=== PATIENT | male | born 1955 | race Caucasian/White ===

== ENCOUNTER → 2018-03-25 | Outpatient (REF) | payer OTHER | LOC: M LAB REF 16:14 | PROVIDERS: ATTEND Physician Assistant | DX: R30.0 Dysuria (principal) ==

== ENCOUNTER → 2018-04-17 | Outpatient (REF) | payer OTHER | LOC: M LAB REF 12:10 | PROVIDERS: ATTEND Physician Assistant | DX: N39.0 Urinary tract infection, site not specified (principal) ==

== ENCOUNTER 2018-04-24 14:53 | Emergency (ER) | payer OTHER ==
[~2018-04-24] VITALS: Ht 182.9 cm; Wt 100.9 kg
[2018-04-24] MEDS ORDERED: ZYLO300T6 PO (15:03)
[2018-04-24] MEDS ORDERED: BACT800T5 PO (15:03)
[2018-04-24] MEDS ORDERED: COLC1TAB13 PO (15:03)
[2018-04-24] MEDS ORDERED: CLON-412 PO (15:03)
[2018-04-24] MEDS ORDERED: ACETAMINOPHEN TAB 650MG DOSE (2X325MG) PO ONE (15:45)
[2018-04-24] MEDS ORDERED: cefTRIAXone SOD 1 GM in D5W MINI-BAG PLUS 50 ML IV ONE (15:45)
[2018-04-24] MEDS ORDERED: NS 1,000 ML IV ONE ×2 (15:45)
[2018-04-24 16:07] LABS: BASO % 0.2 % (0.0-1.0); EOS # 0.1 10^3/uL (0.0-0.50); EOS % 1.2 % (0.0-3.0); HEMATOCRIT 43.8 % (42.0-52.0); LYMPH # 0.4 10^3/uL (1.5-4.5); LYMPH % 7.5 % (24.0-44.0); MEAN CORPUSCULAR HEMOGLOBIN 32.6 pg (27.0-33.0); MEAN CORPUSCULAR HGB CONC 34.2 g/dl (32.0-36.5); MEAN CORPUSCULAR VOLUME 95.2 fl (80.0-96.0); MONO # 0.7 10^3/uL (0.0-0.8); MONO % 14.3 % (0.0-5.0); NEUTROPHILS # 3.8 10^3/uL (1.8-7.7); NEUTROPHILS % 75.8 % (36.0-66.0); PLATELET COUNT, AUTOMATED 180 10^3/uL (150-450); WHITE BLOOD COUNT 5.1 10^3/uL (4.0-10.0)
[2018-04-24 16:41] LABS: ALBUMIN 3.7 GM/DL (3.2-5.2); ALT/SGPT 60 U/L (12-78); BILIRUBIN,DIRECT < 0.1 MG/DL (0.0-0.2); BILIRUBIN,TOTAL 0.9 MG/DL (0.2-1.0); BLOOD UREA NITROGEN 13 MG/DL (7-18); CALCIUM LEVEL 8.7 MG/DL (8.8-10.2); CARBON DIOXIDE LEVEL 23 MEQ/L (21-32); CHLORIDE LEVEL 99 MEQ/L (98-107); CREATININE FOR GFR 1.38 MG/DL (0.70-1.30); GLUCOSE, FASTING 85 MG/DL (70-100); POTASSIUM SERUM 4.9 MEQ/L (3.5-5.1); SODIUM LEVEL 134 MEQ/L (136-145); TOTAL PROTEIN 7.4 GM/DL (6.4-8.2)
[2018-04-24] MEDS ORDERED: ISOVUE-370 76% 100ML VIAL (Q9967) As Ordered ONE (16:42)
--- NOTE | 2018-04-24 17:19 | REP ---
Clinical: Dysuria and systemic inflammatory response syndrome. Technique: Axial contrast enhanced images from the lung bases to the pubic symphysis using 100 ml Isovue 370 intravenous contrast material with coronal and sagittal re-formations. Findings: Lung bases demonstrate 3 mm noncalcified nodule along the periphery of the left lower lobe (image 23) likely incidental. Diffuse fatty infiltration to the liver noted without focal hepatic lesion identified. Spleen, pancreas, gallbladder, bilateral adrenal glands and kidneys are normal. The enteric system is without obstruction or acute inflammatory process. Colonic and sigmoid diverticula noted without acute diverticulitis. Evaluation of the pelvis demonstrates heterogeneous moderately enlarged prostate gland measuring 5 cm maximal transverse diameter. The bladder is incompletely distended but bladder wall thickening cannot be excluded and may warrant correlation with urinalysis. Small fat containing left inguinal hernia noted. No ascites. No free air. No significant adenopathy. Abdominal aorta demonstrates atherosclerotic changes without aneurysm or dissection. Surrounding musculoskeletal structures demonstrate age-related changes without focal osseous abnormality. Impression: 1. Hepatosteatosis. 2. Diverticulosis without acute diverticulitis. 3. Bladder wall thickening cannot be excluded and should be correlated with urinalysis. 4. Moderately enlarged prostate gland. Electronically Signed by Ye Pitts MD 04/24/2018 05:11 P
[2018-04-24 18:31] LABS: C REACTIVE PROTEIN QUANTITATIV 6.74 MG/DL (0.00-0.30)
[2018-04-24] MEDS ORDERED: FLOM0.4C39 PO (18:38)
[2018-04-24] MEDS ORDERED: CIPR-249 PO (18:38)
[2018-04-24 18:44] VITALS: BP 150/77
[2018-04-24 18:48] LABS: ERYTHROCYTE SEDIMENTATION RATE 37 mm/hr (0-20)
[2018-04-24 19:09] LABS: APPEARANCE, URINE CLEAR (CLEAR); BACTERIA, URINE AUTO NEGATIVE (NEGATIVE); BILIRUBIN, URINE AUTO NEGATIVE (NEGATIVE); BLOOD, URINE BLOOD NEGATIVE (NEGATIVE); COLOR, URINE YELLOW (YELLOW); GLUCOSE, URINE (UA) AUTO NEGATIVE (NEGATIVE); KETONE, URINE AUTO 1+ mg/dL (NEGATIVE); LEUKOCYTE ESTERASE, URINE AUTO NEGATIVE (NEGATIVE); NITRITE, URINE AUTO NEGATIVE (NEGATIVE); PROTEIN, URINE AUTO NEGATIVE (NEGATIVE); RBC, URINE AUTO 2 /HPF (0-3); SQUAMOUS EPITHELIAL CELL UR AU 0 /HPF (0-6); UROBILINOGEN, URINE AUTO 0.2 mg/dL (0.0-2.0); WBC, URINE AUTO 1 /HPF (0-3)
[2018-04-24 19:13] LABS: SPECIFIC GRAVITY URINE AUTO >1.060 (1.002-1.035)
== END 2018-04-24 18:55 | disposition home or self-care (01) ==
LOC: M ED 14:53
DX: N30.00 Acute cystitis without hematuria (principal); N40.0 Benign prostatic hyperplasia without lower urinary tract symptoms; R50.9 Fever, unspecified; K76.0 Fatty (change of) liver, not elsewhere classified; R00.0 Tachycardia, unspecified; I10 Essential (primary) hypertension; M10.9 Gout, unspecified; Z79.899 Other long term (current) drug therapy; Z79.2 Long term (current) use of antibiotics
CPT/HCPCS: 74177; 80048; 80076; 81001; 83605; 85025; 85652; 86140; 87040; 87086; 96365; 96366; 99284; G0103; J0696; Q9967

== ENCOUNTER 2018-04-26 10:13 | Inpatient (IN) | payer OTHER ==
[~2018-04-26] VITALS: Ht 182.9 cm; Wt 103.5 kg
[~2018-04-26 10:13] MED LIST: BACT800T5 PO; CIPR-249 PO; CLON-412 PO; COLC1TAB13 PO; FLOM0.4C39 PO; ZYLO300T6 PO
[2018-04-26] MEDS ORDERED: FAMOTIDINE INJ 20MG/2ML VIAL (S0028) IVP ONE (10:30)
[2018-04-26] MEDS ORDERED: methylPREDNISolone INJ 125 MG/2 ML VIAL (J2930) IV ONE (10:30)
[2018-04-26] MEDS ORDERED: NS 1,000 ML IV ONE ×2 (10:30)
[2018-04-26] MEDS ORDERED: diphenhydrAMINE INJ 50MG/ML VIAL (J1200) IV ONE (10:30)
[2018-04-26] MEDS ORDERED: FAMOTIDINE IV BAG 20 MG in APPROPRIATE DILUENT 1 EA IV ONE (10:45)
--- NOTE | 2018-04-26 11:06 | REP ---
Clinical: Chest and abdominal pain . Comparison: None . Technique: PA and lateral. Findings: The mediastinum and cardiac silhouette are normal. The lung man are clear and without acute consolidation, effusion, or pneumothorax. The skeletal structures are intact and normal. Impression: 1. No acute cardiopulmonary process. Electronically Signed by Ye Pitts MD 04/26/2018 10:58 A
[2018-04-26] MEDS ORDERED: XANA0.25 PO (11:20)
[2018-04-26 11:36] LABS: BASO % 0.2 % (0.0-1.0); EOS # 0.4 10^3/uL (0.0-0.50); HEMATOCRIT 45.2 % (42.0-52.0); HEMOGLOBIN 15.2 g/dl (13.5-17.5); LYMPH # 0.7 10^3/uL (1.5-4.5); LYMPH % 16.1 % (24.0-44.0); MEAN CORPUSCULAR HEMOGLOBIN 32.1 pg (27.0-33.0); MEAN CORPUSCULAR HGB CONC 33.6 g/dl (32.0-36.5); MEAN CORPUSCULAR VOLUME 95.6 fl (80.0-96.0); MONO # 0.1 10^3/uL (0.0-0.8); MONO % 2.9 % (0.0-5.0); NEUTROPHILS # 3.2 10^3/uL (1.8-7.7); NEUTROPHILS % 71.9 % (36.0-66.0); PLATELET COUNT, AUTOMATED 152 10^3/uL (150-450); RED BLOOD COUNT 4.73 10^6/uL (4.30-6.10); WHITE BLOOD COUNT 4.5 10^3/uL (4.0-10.0)
[2018-04-26 11:42] LABS: INR 1.03; PARTIAL THROMBOPLASTIN TIME 31.5 SECONDS (25.4-37.6); PROTHROMBIN TIME 13.6 SECONDS (12.1-14.4)
[2018-04-26 11:57] LABS: ERYTHROCYTE SEDIMENTATION RATE 7 mm/hr (0-20)
[2018-04-26 11:57] LABS: INFLUENZA A AMPLIFICATION NEGATIVE (NEGATIVE); INFLUENZA B AMPLIFICATION NEGATIVE (NEGATIVE)
[2018-04-26 12:09] LABS: ALBUMIN 3.2 GM/DL (3.2-5.2); ALT/SGPT 51 U/L (12-78); AMYLASE 21 U/L (25-115); BILIRUBIN,DIRECT 0.2 MG/DL (0.0-0.2); BILIRUBIN,TOTAL 0.8 MG/DL (0.2-1.0); BLOOD UREA NITROGEN 17 MG/DL (7-18); CARBON DIOXIDE LEVEL 23 MEQ/L (21-32); CHLORIDE LEVEL 101 MEQ/L (98-107); CK-MB VALUE MASS < 1.0 NG/ML (<3.6); CPK CREATINE PHOSPHOKINASE 79 U/L (39-308); CREATININE FOR GFR 1.27 MG/DL (0.70-1.30); GLOMERULAR FILTRATION RATE > 60.0 (>49); GLUCOSE, FASTING 105 MG/DL (70-100); LIPASE 88 U/L (73-393); MB/CK RELATIVE INDEX 1.27 (< OR =4); POTASSIUM SERUM 3.7 MEQ/L (3.5-5.1); SODIUM LEVEL 134 MEQ/L (136-145); TOTAL PROTEIN 7.1 GM/DL (6.4-8.2); TROPONIN I < 0.02 NG/ML (< 0.10)
[2018-04-26] MEDS ORDERED: FLOM0.4C39 PO (12:49)
[2018-04-26] MEDS ORDERED: CIPR500T3 PO (12:49)
[2018-04-26] MEDS ORDERED: ALEV220T26 PO (12:49)
[2018-04-26] MEDS ORDERED: ACET1TAB55 PO (12:49)
[2018-04-26 13:39] LABS: APPEARANCE, URINE HAZY (CLEAR); BACTERIA, URINE AUTO NEGATIVE (NEGATIVE); BILIRUBIN, URINE AUTO NEGATIVE (NEGATIVE); BLOOD, URINE BLOOD NEGATIVE (NEGATIVE); COLOR, URINE AMBER (YELLOW); GLUCOSE, URINE (UA) AUTO NEGATIVE (NEGATIVE); KETONE, URINE AUTO 1+ mg/dL (NEGATIVE); LEUKOCYTE ESTERASE, URINE AUTO NEGATIVE (NEGATIVE); MUCUS, URINE SMALL (NEGATIVE); NITRITE, URINE AUTO NEGATIVE (NEGATIVE); PROTEIN, URINE AUTO 1+ mg/dL (NEGATIVE); RBC, URINE AUTO 2 /HPF (0-3); SPECIFIC GRAVITY URINE AUTO 1.028 (1.002-1.035); SQUAMOUS EPITHELIAL CELL UR AU 0 /HPF (0-6); UROBILINOGEN, URINE AUTO 0.2 mg/dL (0.0-2.0); WBC, URINE AUTO 2 /HPF (0-3)
[2018-04-26] MEDS ORDERED: ACETAMINOPHEN TAB 650MG DOSE (2X325MG) PO PRN (14:15)
[2018-04-26] MEDS ORDERED: cefTRIAXone SOD 1 GM in D5W MINI-BAG PLUS 50 ML IV SCH (15:00)
--- NOTE | 2018-04-26 16:01 | HPE ---
DATE OF ADMISSION: 04/26/2018 An 82-year-old male with past medical history of hypertension and gout presents to the emergency room as a second visit for elevated fevers. said the fever this morning was 103 at home. He also had an episode of nausea and vomiting. Apparently in late February he started having urinary tract symptoms and had a urine culture done, which found that he was positive for Escherichia (E) coli, sensitive to many antibiotics. He was given a prescription for Macrobid, which he did not take. Patient persisted in his symptoms, so he want back to urgent care. Again, another urine culture was done, which showed E. coli again with the same sensitivities, so patient was given Bactrim this time. He did complete the entire course, but patient did not get any better, so April 24 he went to see the urologist. Urology recommended that the patient go to the emergency room (ER), and the patient in the ER had urine culture and blood cultures which came back no growth. In the ER visit on April 24, he was given a dose of intravenous (IV) Rocephin and sent home on Cipro. Again, his symptoms persisted. When I saw the patient, he did not complain of any dysuria, frequency, any abdominal pain. He is not nauseous at this time. He did mention he had two episodes of loose stool after he was given the Rocephin, but that has stopped since. He has no subjective feeling of aches and chills. In the ER he was given a dose of IV Rocephin. He will be admitted for further management. PAST MEDICAL HISTORY: 1. Hypertension. 2. Gout. ALLERGIES: He has no known drug allergies. FAMILY HISTORY: Noncontributory. SOCIAL HISTORY: Patient denies tobacco, alcohol, or illicit drugs. HOME MEDICATIONS: - Tylenol 650 by mouth every 4 as needed - allopurinol 300 mg orally daily - Cipro 500 mg orally twice daily - clonidine 0.1 mg orally twice daily - colchicine 0.6 mg orally daily - Naproxen 220 mg orally twice daily as needed - tamsulosin 0.4 mg orally every evening REVIEW OF SYSTEMS: Negative for all 10 major systems except what is mentioned in history of present illness (HPI). VITAL SIGNS: Blood pressure 127/79, heart rate 82 and regular, respiratory rate is 20, temperature is 97.6, oxygen saturation is 98% on room air. NECK: Supple. No jugular venous distention (JVD). LUNGS: Clear to auscultation. HEART: S1, S2 audible. No murmurs appreciated. ABDOMEN: Soft. Positive bowel sounds. No pedal edema. SKIN: Intact. NEUROLOGIC: Patient is awake, alert, oriented times three. LABORATORY DATA: WBC 4.5, hemoglobin 15.2, hematocrit 45.2, platelets are 150,000. ESR 7. Sodium 134, potassium 3.7, chloride 101, CO2 of 23, anion gap 10, BUN 17, creatinine 1.27, fasting glucose 105, lactic acid 1.8. AST 35, ALT 51, CK 79, lipase 88. C-reactive protein is elevated at 9.23. Urinalysis was negative for UTI. Influenza A and B were negative. IMPRESSION: Fever of unknown origin. PLAN: Patient will be admitted to the progressive care unit (PCU). At this time, the only thing I can think of is possibility that he may have had a transient bacteremia on the week he did not take his medication for his E. coli UTI. I will get an echocardiogram. I will start the patient on IV Zosyn to empirically cover him and will see what the results of echo show. If there is no vegetation, then we will get infectious disease on board to give us more input. To note, patient has never had a purified protein derivative (PPD) done, but he does not present any symptoms of active tuberculosis (TB). I will have a PPD placed on him. Will continue his preadmission medication and continue his care on the medical/surgical floor.
[2018-04-26 16:56] VITALS: BP 158/100
[2018-04-26] MEDS: NS 1,000 ML IV SCH (17:36)
[2018-04-26] MEDS: ALLOPURINOL 300 MG TAB PO SCH (17:36)
[2018-04-26] MEDS: PIPERACILLIN/TAZOBACTAM SOD 3.375 GM in D5W MINI-BAG PLUS 50 ML IV SCH ×2 (17:37→20:47)
[2018-04-26] MEDS: COLCHICINE 0.6 MG TAB PO SCH (18:54)
[2018-04-26] MEDS: TUBERCULIN PPD 5 UNITS/0.1 ML ID ONE ×2 (18:54→18:56)
--- NOTE | 2018-04-26 19:17 | ECGEPIP ---
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
[2018-04-26 20:00] VITALS: BP 134/78
[2018-04-26] MEDS: TAMSULOSIN 0.4 MG CAP PO SCH (20:48)
[2018-04-26] MEDS: cloNIDine 0.1 MG TAB PO SCH (20:48)
[2018-04-26] MEDS ORDERED: diphenhydrAMINE 50 MG CAP PO PRN (21:15)
[2018-04-26 23:59] VITALS: BP 138/71
[2018-04-27 04:00] VITALS: BP 135/78
[2018-04-27] MEDS: PIPERACILLIN/TAZOBACTAM SOD 3.375 GM in D5W MINI-BAG PLUS 50 ML IV SCH ×4 (04:04→20:35)
[2018-04-27] MEDS: NS 1,000 ML IV SCH ×3 (04:04→15:45)
[2018-04-27 06:00] LABS: BASO % 0.4 % (0.0-1.0); EOS % 0.7 % (0.0-3.0); HEMATOCRIT 37.7 % (42.0-52.0); LYMPH # 1.1 10^3/uL (1.5-4.5); MEAN CORPUSCULAR HEMOGLOBIN 32.1 pg (27.0-33.0); MEAN CORPUSCULAR HGB CONC 33.4 g/dl (32.0-36.5); MEAN CORPUSCULAR VOLUME 95.9 fl (80.0-96.0); MONO # 0.3 10^3/uL (0.0-0.8); MONO % 6.1 % (0.0-5.0); NEUTROPHILS # 3.2 10^3/uL (1.8-7.7); NEUTROPHILS % 68.9 % (36.0-66.0); PLATELET COUNT, AUTOMATED 134 10^3/uL (150-450); RED BLOOD COUNT 3.93 10^6/uL (4.30-6.10); WHITE BLOOD COUNT 4.6 10^3/uL (4.0-10.0)
[2018-04-27 06:02] LABS: HEMOGLOBIN 12.6 g/dl (13.5-17.5)
[2018-04-27 06:13] LABS: ALBUMIN 2.7 GM/DL (3.2-5.2); ALT/SGPT 45 U/L (12-78); BILIRUBIN,TOTAL 0.4 MG/DL (0.2-1.0); BLOOD UREA NITROGEN 14 MG/DL (7-18); CALCIUM LEVEL 7.3 MG/DL (8.8-10.2); CARBON DIOXIDE LEVEL 23 MEQ/L (21-32); CHLORIDE LEVEL 107 MEQ/L (98-107); CREATININE FOR GFR 0.95 MG/DL (0.70-1.30); GLOMERULAR FILTRATION RATE > 60.0 (>49); GLUCOSE, FASTING 138 MG/DL (70-100); POTASSIUM SERUM 4.1 MEQ/L (3.5-5.1); SODIUM LEVEL 139 MEQ/L (136-145); TOTAL PROTEIN 6.1 GM/DL (6.4-8.2)
[2018-04-27 08:10] LABS: CHOLESTEROL LEVEL 111 MG/DL (<200); CHOLESTEROL RISK RATIO 13.875 (<5); HDL CHOLESTEROL 8 MG/DL (>40); LDL CHOLESTEROL 59 MG/DL (<100); NON-HDL-C 103 MG/DL; TRIGLYCERIDES LEVEL 222 MG/DL (<150)
[2018-04-27 08:14] VITALS: BP 131/73
[2018-04-27] MEDS ORDERED: ISOVUE-370 76% 100ML VIAL (Q9967) As Ordered ONE (09:39)
[2018-04-27] MEDS: COLCHICINE 0.6 MG TAB PO SCH (09:53)
[2018-04-27] MEDS: LACTOBACILLUS ACIDOPHILUS CAP (BACID) PO SCH ×3 (09:53→20:34)
[2018-04-27] MEDS: ALLOPURINOL 300 MG TAB PO SCH (09:53)
[2018-04-27] MEDS: ENOXAPARIN 40 MG/0.4 ML SYRINGE (J1650) SC SCH (09:54)
[2018-04-27] MEDS: cloNIDine 0.1 MG TAB PO SCH ×2 (09:54→20:34)
[2018-04-27] MEDS ORDERED: FLEET ENEMA PR ONE (11:00)
[2018-04-27 11:54] VITALS: BP 138/86
--- NOTE | 2018-04-27 13:34 | REP ---
Clinical: Pain. Rule out abscess. Technique: Transrectal ultrasound. Findings: Prostate is enlarged and heterogenous with small parenchymal calcifications. Prostate measures 4.9 x 2.8 x 5.3 cm. No fluid collection or abscess. Impression: Enlarged heterogenous prostate gland without abscess. Electronically Signed by Ye Pitts MD 04/27/2018 01:26 P
--- NOTE | 2018-04-27 14:56 | IPN ---
DATE: 04/27/2018 Patient seen and examined admitted yesterday currently afebrile overnight. Denies any chest pain, pressure or discomfort. Denies any urinary complaint and denies any abdominal pain, nausea or vomiting. Continues to report diarrhea. VITAL SIGNS: Temperature 98.4, pulse 67, respirations 19, blood pressure 138/86, pulse ox 97% on room air. LABORATORY: WBC 4.6, hemoglobin and hematocrit 12.6/37.7, platelets 134, chemistry sodium 139, potassium 4.1, chloride 107, bicarbonate 23, BUN 14, creatinine 0.95. Cardiac enzyme negative times one. Respiratory panel negative. PHYSICAL EXAMINATION: GENERAL: Patient alert, comfortable in no acute distress. HEENT: Normocephalic, atraumatic. PULMONARY: Bilateral clear. CARDIAC: Regular S1, S2. ABDOMEN: Soft and nontender, positive bowel sounds. EXTREMITIES: No clubbing, cyanosis or edema. NEUROLOGIC: No focal deficit. ASSESSMENT AND PLAN: This is a 62-year-old male patient with underlying medical history of hypertension and gout who presented to the emergency room recently treated for a UTI multiple times who presented with intermittent fever of unknown origin. PROBLEMS: 1. Fever of unknown origin. IV fluids have been given. Differential diagnosis include prostatitis versus intraabdominal abscess versus intraabdominal abscess versus viral infection versus c-diff. Will get CT of the chest abdomen and pelvis with contrast. Echocardiogram has been ordered. Followup GI panel. UA has been negative. Followup blood culture. Consider consulting infectious disease tomorrow. Patient currently remains afebrile. Empirically started with Zosyn by admitting provider and IV fluids. 2. Diarrhea. GI panel, probiotics. 3. Hypertension. Continue current medication including Clonidine. 4. Benign prostatic hypertrophy. Continue Flomax. 5. Gout. Continue current medication. DVT prophylaxis. Lovenox subcu. DISPOSITION: Pending clinical improvement infectious disease consult if patient does not improve and further workup including CT chest, abdomen and pelvis as well as echocardiogram as well as prostate ultrasound and GI panel.
--- NOTE | 2018-04-27 15:00 | ECHO ---
DATE OF STUDY: 04/26/2018 DATE OF : 1955 AGE: 62 PATIENT LOCATION: Emergency room REASON FOR THE ECHOCARDIOGRAM: Fever. 2D MEASUREMENTS: IVS: 1.1 cm LV: 4.1 cm LVPW: 1.0 cm LA: 3.7 cm Aorta: 2.8 cm IVC: 1.9 cm DOPPLER MEASUREMENTS: Peak velocity across the aortic valve: 1.4 m/s Peak velocity across the LVOT: 0.99 m/s Mitral E: 0.88 Mitral A: 0.89 Ratio: 1.0 Maximum tricuspid valve velocity: 2.2 m/s 2D COMMENTS: 1. Normal left ventricular size, wall thickness, and normal global left ventricular systolic function. The estimated left ventricular systolic ejection fraction is 65-70%. 2. Normal left atrium. Normal right atrium and right ventricle. 3. The atrial septum appeared to be normal without evidence of defect or shunt. 4. Normal aortic root. 5. Trace to small pericardial effusion noted posteriorly. No evidence of cardiac tamponade. 6. Minimally calcified aortic valve with normal leaflet excursion. Normal mitral valve, tricuspid valve. The pulmonic valve appeared to be normal in limited views. The proximal pulmonary artery branches were not well visualized. 7. The inferior vena cava was normal in size, central venous pressure might be normal. IMPRESSION: 1. Normal global left ventricular systolic function. Left ventricular diastolic function also appeared to be normal. 2. Aortic valve sclerosis without stenosis or aortic regurgitation. 3. Trace mitral regurgitation. 4. Trace tricuspid regurgitation with a normal calculated pulmonary artery systolic pressure. 5. Trace to small pericardial effusion noted, no evidence of cardiac tamponade.
[2018-04-27 16:07] VITALS: BP 143/81
[2018-04-27 20:00] VITALS: BP 137/87
[2018-04-27] MEDS: TAMSULOSIN 0.4 MG CAP PO SCH (20:35)
[2018-04-27 23:59] VITALS: BP 140/94
[2018-04-28 04:00] VITALS: BP 150/98
[2018-04-28] MEDS: PIPERACILLIN/TAZOBACTAM SOD 3.375 GM in D5W MINI-BAG PLUS 50 ML IV SCH ×4 (04:16→20:18)
[2018-04-28 05:16] LABS: HEMOGLOBIN 12.1 g/dl (13.5-17.5); MEAN CORPUSCULAR HEMOGLOBIN 31.8 pg (27.0-33.0); MEAN CORPUSCULAR HGB CONC 32.7 g/dl (32.0-36.5); MEAN CORPUSCULAR VOLUME 97.4 fl (80.0-96.0); PLATELET COUNT, AUTOMATED 139 10^3/uL (150-450)
[2018-04-28 05:45] LABS: ALBUMIN 2.6 GM/DL (3.2-5.2); ALT/SGPT 70 U/L (12-78); BILIRUBIN,TOTAL 0.3 MG/DL (0.2-1.0); BLOOD UREA NITROGEN 15 MG/DL (7-18); C REACTIVE PROTEIN QUANTITATIV 3.18 MG/DL (0.00-0.30); CALCIUM LEVEL 7.4 MG/DL (8.8-10.2); CARBON DIOXIDE LEVEL 24 MEQ/L (21-32); CHLORIDE LEVEL 111 MEQ/L (98-107); CREATININE FOR GFR 1.05 MG/DL (0.70-1.30); GLOMERULAR FILTRATION RATE > 60.0 (>49); GLUCOSE, FASTING 102 MG/DL (70-100); MAGNESIUM LEVEL 2.1 MG/DL (1.8-2.4); POTASSIUM SERUM 3.9 MEQ/L (3.5-5.1); SODIUM LEVEL 142 MEQ/L (136-145)
[2018-04-28] MEDS: NS 1,000 ML IV SCH (06:38)
--- NOTE | 2018-04-28 07:40 | REP ---
Clinical: Fever of unknown origin. Technique: Axial contrast enhanced images from the thoracic inlet to the upper abdomen with coronal and sagittal re-formations using 100 ml Isovue 370 intravenous contrast material. Findings: Trace lingular fibroatelectatic changes are nonspecific. No focal consolidation, effusion, or pneumothorax. No significant nodule or mass lesion. Tracheobronchial tree is patent. No adenopathy. The mediastinum demonstrates normal thoracic aorta, heart and pericardium. Surrounding musculoskeletal structures are intact. Impression: Trace likely chronic changes at the lingula. No acute mediastinal or pleuroparenchymal process appreciated. Electronically Signed by Ye Pitts MD 04/27/2018 10:24 A
--- NOTE | 2018-04-28 07:40 | REP ---
Clinical: Fever. Diarrhea. Technique: Axial contrast enhanced images from the lung bases to the pubic symphysis using 100 ml Isovue 370 intravenous contrast material with coronal and sagittal re-formations. Comparison: 04/24/2018. Findings: Diffuse fatty infiltration to the liver. Spleen, pancreas, gallbladder, bilateral adrenal glands and kidneys are normal. The enteric system is without obstruction or acute inflammatory process. Scattered sigmoid diverticula noted without acute diverticulitis. Normal terminal ileum and appendix identified in the right lower quadrant. The bladder is under distended but mild bladder wall thickening cannot be excluded and should be correlated with urinalysis and possible cystoscopy if necessary. The prostate gland is enlarged and includes 1.5 cm hypodense nodule in the left lobe. No ascites. No significant adenopathy. No free air. Abdominal aorta without aneurysm or dissection. Musculoskeletal structures demonstrate age-related changes. Impression: 1. Hepatic steatosis without focal hepatic lesion. 2. Sigmoid diverticula without acute diverticulitis. 3. Mild bladder wall thickening cannot be excluded and should be correlated with urinalysis and cystoscopy if necessary. 4. Mildly enlarged prostate gland with left-sided hypodense nodule. Electronically Signed by Ye Pitts MD 04/27/2018 10:26 A
[2018-04-28 08:00] VITALS: BP 148/72
[2018-04-28] MEDS: ALLOPURINOL 300 MG TAB PO SCH (08:27)
[2018-04-28] MEDS: LACTOBACILLUS ACIDOPHILUS CAP (BACID) PO SCH ×3 (08:28→20:18)
[2018-04-28] MEDS: cloNIDine 0.1 MG TAB PO SCH ×2 (08:28→20:19)
[2018-04-28] MEDS: ENOXAPARIN 40 MG/0.4 ML SYRINGE (J1650) SC SCH (08:30)
[2018-04-28] MEDS ORDERED: SLF 3 ML SYR IV PRN (08:30)
[2018-04-28] MEDS: COLCHICINE 0.6 MG TAB PO SCH (09:56)
--- NOTE | 2018-04-28 10:32 | IPNPDOC ---
Text Note Date of Service The patient was seen on 04/28/18. NOTE Subjective: Patient is a 62-year-old male who presented to the emergency room on 04/26/2018 for chief complaint of fever. Patient was diagnosed with a urinary tract infection by urgent care at the end of February and was prescribed a 7 day course of Macrobid. Patient states that he took it for about 4-5 days as prescribed however, he missed some doses towards the end of the course and ended up finishing the course in 10 days. Patient had urinary symptoms again and went back to urgent care who gave him Bactrim. Patient says the Bactrim did not help him and at the end of the course he was still having symptoms and fevers. Patient was then seen by urology on 04/24/2018 who sent him to the emergency room because the patient was continuing to have fevers and urinary symptoms. In the emergency room on 04/24/2018, patient received a dose of Rocephin and was discharged. Patient was still having fevers on 04/26/2018 so he went back to the emergency room where he was admitted. Since being in the hospital patient has not had any documented fevers. Patient did develop an erythematous for body rash. Patient was switched from Rocephin to Zosyn which she is currently on. Patient says today he is feeling better however, he is still concerned about where his infection is coming from. Patient states that he's had a prostate exam. Digital rectal exam twice in the last few days and it was not painful. Patient states he is not having any urinary difficulties at this time. Patient i s able to eat and drink without issue. Review of systems General: Patient denies fevers HEENT: Patient denies headaches Cardiovascular: Patient denies chest pain Respiratory: Patient denies shortness of breath, cough GI: Patient denies abdominal pain, nausea, vomiting, diarrhea : Patient denies pain or difficulty with urination Neurological: Patient denies numbness or tingling in extremities Extremities: Patient denies swelling or pain in extremities Objective: Vitals: (see below) General: Alert and oriented male patient who was laying in bed with his in the room. Patient was in no acute distress. HEENT: Normocephalic, atraumatic, moist mucous membranes. Neck: No JVD or lymphadenopathy Cardiac: RRR, No murmurs Pulm: Clear to auscultation b/l. No wheezing, rhonchi Abd: NT/ND + BS Ext: No edema or cyanosis. Radial, posterior tibial, and dorsalis pedis pulses equal bilaterally. Labs (see below) Images: A transrectal ultrasound of the prostate performed on 04/27/2018 showed enlarged heterogeneous prostate gland without abscess. A CT of the chest with contrast performed on 04/27/2018 showed trace likely chronic changes at the lingula. No acute mediastinal or pleural parenchymal process appreciated. A CT of the abdomen and pelvis with IV contrast only performed on 04/27/2018 showed hepatic steatosis without focal hepatic lesion. Sigmoid diverticula without acute diverticulitis. Mild bladder wall thickening cannot be excluded and should be correlated with urinalysis and cystoscopy if necessary and a mildly enlarged prostate gland with a left-sided hypodense nodule. Assessment/Plan 1. Fever of unknown origin. This is possibly from prostatitis that has been inadequately treated. CT of the chest and abdomen did not show any intra- abdominal abscess. It is also possible patient has a viral infection. Patient's influenza a and B test were negative. Blood cultures have been negative so far. Urine cultures have been negative so far. Trans-thoracic echocardiogram did not show any vegetations. Infectious disease has been contacted and consulted. Patient is currently on Zosyn which we will continue pending advisement from infectious disease. We appreciate infectious disease seeing the patient. 2. Diarrhea. GI panel was negative. The patient's diarrhea is subsiding. 3. Hypertension. We will continue patient's home medication. 4. Benign prostatic hypertrophy. We will continue Flomax. 5. Gout. We'll continue current medication. DVT prophy: Lovenox 40 units subcutaneous. Dispo: Pending infectious disease consultation. Likely to be able to be discharged tomorrow. VS,Fishbone, I+O VS, Fishbone, I+O Laboratory Tests 04/28/18 04:52 Red Blood Count 3.80 L, Mean Corpuscular Volume 97.4 H, Mean Corpuscular Hemoglobin 31.8, Mean Corpuscular Hemoglobin Concent 32.7, Red Cell Distribution Width 13.0, Calcium Level 7.4 L, Aspartate Amino Transf (AST/SGOT) 48 H, Alanine Aminotransferase (ALT/SGPT) 70, Alkaline Phosphatase 60, Total Bilirubin 0.3, Total Protein 6.0 L, Albumin 2.6 L Vital Signs Date Time Temp Pulse Resp B/P (MAP) Pulse Ox O2 Delivery O2 Flow Rate FiO2 04/28/18 08:28 154/72 04/28/18 08:00 98.3 75 20 94 04/26/18 16:20 Room Air I&O- Last 24 Hours up to 6 AM 04/28/18 06:00 Intake Total 2245 ml Output Total 1075 ml Balance 1170 ml GME ATTESTATION GME ATTESTATION My faculty preceptor for this patient encounter was physically present during the encounter and was fully available. All aspects of the patient interview, examination, medical decision making process, and medical care plan development were reviewed and approved by the faculty preceptor. The faculty preceptor is aware and concurs with the plan as stated in the body of this note and will attest to such by his/her cosignature. DANIEL NAVARRETE DO Apr 28, 2018 10:32
[2018-04-28 12:00] VITALS: BP 140/86
[2018-04-28] MEDS: SLF 3 ML SYR IV SCH ×2 (14:00→20:19)
[2018-04-28 17:55] VITALS: BP 140/60
[2018-04-28] MEDS ORDERED: PPD DOCUMENTATION ENTRY MISC XX ONE (18:00)
--- NOTE | 2018-04-28 19:41 | CR ---
DATE OF CONSULTATION: 04/28/2018 CONSULTING PHYSICIAN: Dr. Ceci Skelton This is a 62-year-old male with a past medical history of hypertension and gout, who presented to the emergency department on 04/26/2018 for elevated fevers. There was a question that the patient had a possible acute prostatitis and infectious disease was consulted. The patient states that at the end of February he was having urinary symptoms of dysuria, slow stream, lower abdominal fullness. He went to urgent care and he was diagnosed with a urinary tract infection (UTI) and was prescribed Macrobid for 7 days. He states that when his symptoms resolved 5 days later he pretty much stopped the medication and he was doing well. Then on 04/17/2018 he once again started to have painful urination, weak stream, lower abdominal fullness. He returned to the urgent care and was diagnosed with a urinary tract infection (UTI) with growth of Escherichia (E) coli that was sensitive to Bactrim DS and he was prescribed a 7 day course. He then admits to flu-like symptoms that started on 04/22/18 while his symptoms improved. He noticed on the last day of the bactrim he had a temperature (t- max) of 102.5 at home. He was evaluated by urology on 04/24/2018, who advised him to go to the emergency room for further evaluation. In the emergency room, he was given a one time dose of Rocephin and was discharged on PO ciprofloxacin. On 04/26/2018 morning, he woke up with an erythematous diffuse rash that was not blanching and he continued to still have fevers. He came to [facility] and was admitted for a fever or unknown origin. He was given one dose of Solu-Medrol, famotidine, and Benadryl for allergic reaction. The patient states that on 04/24/2018 the only symptom that he had was fever. He did not have any dysuria, urinary frequency or the abdominal fullness. All of his urinary symptoms did improve after the completion of the antibiotic. When he was admitted, he was started on Zosyn and was given IV hydration. While admitted, he has been afebrile and his diffuse erythema improved. His urine cultures times two(04/24/2018 and 04/26/2018) were negative for bacterial growth. On the day of consultation, the patient was asymptomatic and had a desire to go home. PAST MEDICAL HISTORY: 1. Hypertension. 2. Gout. ALLERGIES: No known drug allergies. FAMILY HISTORY: No known family history of drug allergies that he is sure of. SOCIAL HISTORY: The patient denies tobacco, alcohol or illicit drug use. He and his recently just moved from [place], [place] to [place], [place]. HOME MEDICATIONS: - Tylenol 650 mg by mouth every 4 hours as needed - allopurinol 300 mg by mouth daily - ciprofloxacin 500 mg by mouth twice a day (was started on 04/25/2018 and has only completed three doses) - clonidine 0.1 mg by mouth twice a day - colchicine 0.6 mg by mouth daily - naproxen 220 mg by mouth twice a day as needed - tamsulosin 0.4 mg by mouth every evening REVIEW OF SYSTEMS: GENERAL: The patient denies currently any fevers, chills, night sweats. HEENT: Denies any trouble swallowing, lymphadenopathy, headaches, lightheadedness, dizziness. RESPIRATORY: Denies any chest pain, shortness of breath or trouble breathing, sputum production. GASTROINTESTINAL: Denies any abdominal pain, nausea, vomiting, diarrhea. GENITOURINARY: Denies dysuria, increased urinary frequency, or polyuria. INTEGUMENTARY: Does admit to some upper extremity swelling that is improved since being admitted. Diffuse erythema on his face and abdominal region has improved but still persistent in his abdomen. EXTREMITIES: Denies any lower extremity swelling or pitting edema. PHYSICAL EXAMINATION: VITAL SIGNS: Temperature 98.5, pulse 66, respirations 20, blood pressure 140/86 (104), pulse oximetry 96% on room air. GENERAL: This is a very pleasant 62-year-old male who is alert and oriented times three. He is lying on the couch in no acute distress, appropriately answering questions. HEENT: Atraumatic, normocephalic. Moist mucous membranes. No lymphadenopathy noted. No jugular venous distention (JVD) noted. CARDIAC: Regular rate and rhythm. No audible murmurs, rubs or gallops. PULMONARY: Clear to auscultation bilaterally. No audible wheezing or rhonchi noted. ABDOMEN: Nondistended, nontender. Positive bowel sounds in all four quadrants. EXTREMITIES: No lower extremity edema or cyanosis. No pitting edema of the upper extremities, but he does have some minimal nonpitting swelling in the forearms bilaterally. No pain on palpation. INTEGUMENTARY: Nonblanching erythematous rash on the abdomen, non-pruritic in nature, diffuse and worse in the abdomen. LABORATORIES: On day of consultation: WBC 7.0, hemoglobin 12.1, hematocrit 37.0, platelet count 139. On 04/26/2018, the day of admission: Eosinophils were reported at 8.0. Chemistries on 04/28/2018: Electrolytes are relatively within normal limits. C-reactive protein is downtrending from 9.20 to 9.23 to 3.18. Urinalysis showed 1+ protein with 1+ ketones and 2 WBCs. Urine culture is negative for growth. Blood cultures times two are negative for growth. IMAGING: Abdominal/pelvic CT shows hepatosteatosis without focal hepatic lesions, mild bladder wall thickening, sigmoid diverticula without acute diverticulitis, moderately enlarged prostate gland with a left sided hypodense nodule. ASSESSMENT AND PLAN: 1. Fever. Possible drug fever vs DRESS syndrome unlikely infectious in nature. The onset of the symptoms occurred about 7 to 10 days after the initiation of the Bactrim DS. He originally started with flu-like symptoms, generalized malaise and low grade fevers 7-10 day after bactrim was started. On admission, he did have an eosinophilia of 8.0. and had a BUN of 17 and a creatinine of 1.27. We We do not have a baseline for the patient, so we are unsure if had acute kidney injury. There is resolution of symptoms 72-96 hours after withdrawal of the bactrim. We have added SULFA allergy to his chart and he does not need any further treatment. 2. Positive urine culture on 04/17/2018 for Escherichia (E) coli . At this time, he is not complaining of any urinary symptoms. He has completed the 10 day course of antibiotics with 7 days of Bactrim DS outpatient, one dose of IV Rocephin in the emergency room, plus two doses of Zosyn while admitted. We will not continue with IV antibiotics upon discharge. His urine culture since admission has been negative. He can stop the Cipro 500 mg by mouth twice a day that he was on when he came in on admission. Advised to followup with urology outpatient. My faculty preceptor for this patient encounter was physically present during the encounter and was fully available. All aspects of the patient interview, examination, medical decision making process, and medical care plan development were reviewed and approved by the faculty preceptor. The faculty preceptor is aware and concurs with the plan as stated in the body of this note and will attest to such by his/her co-signature. BAYLEE
[2018-04-28 20:00] VITALS: BP 160/86
[2018-04-28] MEDS: TAMSULOSIN 0.4 MG CAP PO SCH (20:18)
[2018-04-29] MEDS: PIPERACILLIN/TAZOBACTAM SOD 3.375 GM in D5W MINI-BAG PLUS 50 ML IV SCH (03:06)
[2018-04-29 04:15] VITALS: BP 158/82
[2018-04-29] MEDS: SLF 3 ML SYR IV SCH (04:42)
[2018-04-29 06:57] LABS: HEMATOCRIT 35.5 % (42.0-52.0); MEAN CORPUSCULAR HEMOGLOBIN 31.8 pg (27.0-33.0); MEAN CORPUSCULAR HGB CONC 33.8 g/dl (32.0-36.5); MEAN CORPUSCULAR VOLUME 94.2 fl (80.0-96.0); PLATELET COUNT, AUTOMATED 149 10^3/uL (150-450); RED BLOOD COUNT 3.77 10^6/uL (4.30-6.10); WHITE BLOOD COUNT 5.3 10^3/uL (4.0-10.0)
[2018-04-29] MEDS: COLCHICINE 0.6 MG TAB PO SCH (08:43)
[2018-04-29] MEDS: LACTOBACILLUS ACIDOPHILUS CAP (BACID) PO SCH (08:43)
[2018-04-29] MEDS: cloNIDine 0.1 MG TAB PO SCH (08:43)
[2018-04-29] MEDS: ALLOPURINOL 300 MG TAB PO SCH (08:44)
[2018-04-29] MEDS: ENOXAPARIN 40 MG/0.4 ML SYRINGE (J1650) SC SCH (08:44)
[2018-04-29 09:39] LABS: ALBUMIN 2.8 GM/DL (3.2-5.2); ALT/SGPT 77 U/L (12-78); BILIRUBIN,TOTAL 0.6 MG/DL (0.2-1.0); BLOOD UREA NITROGEN 13 MG/DL (7-18); C REACTIVE PROTEIN QUANTITATIV 2.61 MG/DL (0.00-0.30); CALCIUM LEVEL 8.1 MG/DL (8.8-10.2); CARBON DIOXIDE LEVEL 23 MEQ/L (21-32); CHLORIDE LEVEL 109 MEQ/L (98-107); CREATININE FOR GFR 0.92 MG/DL (0.70-1.30); GLOMERULAR FILTRATION RATE > 60.0 (>49); GLUCOSE, FASTING 106 MG/DL (70-100); MAGNESIUM LEVEL 2.3 MG/DL (1.8-2.4); POTASSIUM SERUM 3.9 MEQ/L (3.5-5.1); SODIUM LEVEL 141 MEQ/L (136-145); TOTAL PROTEIN 6.4 GM/DL (6.4-8.2)
[2018-04-29] MEDS ORDERED: AMLO5TAB6 PO (10:56)
[2018-04-29] MEDS ORDERED: amLODIPine 5 MG TAB PO ONE (11:00)
[2018-04-29 11:12] VITALS: BP 150/88
--- NOTE | 2018-04-29 18:14 | DS.PDOC ---
Discharge Summary General Date of Admission Apr 26, 2018 at 14:02 Date of Discharge 04/29/18 Attending Physician: CHIQUITA STANLEY MD Specialist/Consultants Involve: Kaye Byrne MD Discharge Summary Patient had not establish a primary care physician prior to hospitalization. Patient has appointment scheduled with Dr. Dillon. PROCEDURES PERFORMED DURING STAY: None. ADMITTING/DISCHARGE DIAGNOSES: 1. Fever of unknown origin 2. Drug fever 3. Area 4. Hypertension 5. Benign prostatic hypertrophy 6. Gout COMPLICATIONS/CHIEF COMPLAINT: Fevers HISTORY OF PRESENT ILLNESS/HOSPITAL COURSE: Patient is a 62-year-old male who presented to the emergency room on 04/26/2017 with a chief complaint of fever. Patient had been diagnosed with a urinary tract infection at the end of February and was prescribed a seven-day course of Macrobid. Patient states he took it for about 5 days as prescribed however he missed some doses source and an unfinished course of 10 days. Patient urinary symptoms began a few weeks later and went to urgent care who started him on Bactrim. Patient says he took the Bactrim as prescribed for the full 7 days. He was then seen by urology on 04/24/2017 with a complaint of fever. His urinary symptoms had resolved at this point. Urology sent into the emergency room where he was given a dose of Rocephin and was sent home after being diagnosed with a UTI. Patient continued to have fevers and began to have a red rash that developed on most of his body on 04/26/2017. Patient went back to the emergency room isn't was admitted into the hospital. Sidney kennedy was started on Zosyn in the hospital. Patient remained afebrile throughout his entire hospitalization. A CT of the chest and a CT of the abdomen and pelvis did not reveal any cause for his fever. A transrectal ultrasound of the prostate did not reveal any prostate abscess. Patient continued to not have urinary symptoms throughout his hospitalization. Infectious disease was consulted and saw the patient on 04/28/2018 and diagnosed the patient with drug fever most likely secondary to Bactrim. Patient did not carry a sulfa allergy prior to this hospitalization but now does. As time went on, patient continued to improve and the patient was ultimately discharged on 04/29/2018 without any antibiotics. Patient was also started on amlodipine for hypertension as the patient was on clonidine as his antihypertensive medication. DISCHARGE MEDICATIONS: Please see below. ALLERGIES: Please see below. PHYSICAL EXAMINATION ON DISCHARGE: Vitals: (see below) General: No acute distress, laying comfortably in bed. HEENT: Moist mucous membranes. Neck: No JVD or lymphadenopathy Cardiac: RRR, No murmurs Pulm: Clear to auscultation b/l. No wheezing, rhonchi Abd: NT/ND + BS Ext: No edema or cyanosis LABORATORY DATA: Please see below. IMAGING: A chest x-ray performed on 04/26/2018 showed no acute cardiopulmonary process. A transrectal ultrasound of the prostate performed on 04/27/2018 showed an enlarged heterogeneous prostate gland without abscess. A CT of the chest with contrast performed on May 07 showed trace likely chronic changes in the lingula. No acute mediastinal or pleural parenchymal process appreciated. A CT of the abdomen and pelvis with IV contrast performed on May 07 showed hepatic steatosis without focal hepatic lesion, sigmoid diverticula without acute diverticulitis, mild bladder wall thickening cannot be excluded and should be correlated with urinalysis and cystoscopy if necessary, and a mildly enlarged prostate gland with left-sided hypodense nodule. PROGNOSIS: Good ACTIVITY: As tolerated. DIET: Heart healthy diet DISCHARGE PLAN/DISPOSITION: Plan is to discharge home DISCHARGE INSTRUCTIONS: 1. Follow-up with primary care provider in 7-10 days. Patient recently moved to this area and will establish with local primary care physician. 2. Follow-up with hypertension. Amlodipine 5 mg daily has been started in the hospital. Patient's only hypertensive medication prior to hospitalization was clonidine 0.1 mg 3. Follow-up with urology. DISCHARGE CONDITION: Stable. TIME SPENT ON DISCHARGE: Greater than 30 minutes. Vital Signs/I&Os Vital Signs Date Time Temp Pulse Resp B/P (MAP) Pulse Ox O2 Delivery O2 Flow Rate FiO2 04/29/18 11:12 60 150/88 04/29/18 04:15 98.8 18 94 04/26/18 16:20 Room Air I&O- Last 24 Hours up to 6 AM 04/29/18 06:00 Intake Total 1280 ml Output Total 1200 ml Balance 80 ml Laboratory Data Labs 24H Laboratory Tests 2 04/29/18 06:32: Nucleated Red Blood Cells % (auto) 0.0, Anion Gap 9, Glomerular Filtration Rate > 60.0, Blood Urea Nitrogen 13, Creatinine 0.92, Sodium Level 141, Potassium Level 3.9, Chloride Level 109H, Carbon Dioxide Level 23, Calcium Level 8.1L, Aspartate Amino Transf (AST/SGOT) 44H, Alanine Aminotransferase (ALT/SGPT) 77, Alkaline Phosphatase 63, Total Bilirubin 0.6#, Total Protein 6.4, Albumin 2.8L, Magnesium Level 2.3, C-Reactive Protein, Quantitative 2.61H, Albumin/Globulin Ratio 0.78L CBC/BMP Laboratory Tests 04/29/18 06:32 Red Blood Count 3.77 L, Mean Corpuscular Volume 94.2, Mean Corpuscular Hemoglobin 31.8, Mean Corpuscular Hemoglobin Concent 33.8, Red Cell Distribution Width 12.8, Calcium Level 8.1 L, Aspartate Amino Transf (AST/SGOT) 44 H, Alanine Aminotransferase (ALT/SGPT) 77, Alkaline Phosphatase 63, Total Bilirubin 0.6 #, Total Protein 6.4, Albumin 2.8 L Microbiology Microbiology 04/26/18 Blood Culture - Preliminary, Resulted No Growth after 72 hours. All specime... 04/26/18 Blood Culture - Preliminary, Resulted No Growth after 72 hours. All specime... 04/27/18 Gastrointestinal Tract Panel (PCR) - Final, Complete 04/26/18 Respiratory Virus Panel (PCR) (ANT) - Final, Complete 04/26/18 Urine Culture - Final, Complete Discharge Medications Scheduled Allopurinol (Zyloprim) 300 Mg Tab, 300 MG PO DAILY, (Reported) Amlodipine Besylate (Amlodipine Besylate) 5 Mg Tab, 5 MG PO DAILY Clonidine Hydrochloride (Clonidine HCl) 0.1 Mg Tab, 0.1 MG PO BID, (Reported) Colchicine (Colchicine) 0.6 Mg Tab, 0.6 MG PO DAILY, (Reported) NOT TAKING WHILE ON CIPRO Tamsulosin Hydrochloride (Flomax) 0.4 Mg Cap, 0.4 MG PO QPM, (Reported) Scheduled PRN Acetaminophen (Acetaminophen) 325 Mg Tab, 650 MG PO Q4H PRN for PAIN, (Reported) Naproxen Sodium (Aleve) 220 Mg Tab, 220 MG PO BID PRN for PAIN, (Reported) Allergies Coded Allergies: Sulfa Antibiotics (Verified Allergy, Severe, 04/28/18) rash eosinophilia GME ATTESTATION GME ATTESTATION My faculty preceptor for this patient encounter was physically present during the encounter and was fully available. All aspects of the patient interview, examination, medical decision making process, and medical care plan development were reviewed and approved by the faculty preceptor. The faculty preceptor is aware and concurs with the plan as stated in the body of this note and will attest to such by his/her cosignature. DANIEL NAVARRETE DO Apr 29, 2018 18:14
[2018-04-30] MEDS ORDERED: amLODIPine 5 MG TAB PO SCH (09:00)
== END 2018-04-29 12:25 | disposition home or self-care (01) | DRG 722 ==
LOC: M ED 10:13 → M ED INP 14:02 → M PCU 16:49 → M MS4PR 04-28 17:50
PROVIDERS: ADMIT Internal Medicine; ATTEND Internal Medicine
DX: R50.2 Drug induced fever (principal); I10 Essential (primary) hypertension; N40.0 Benign prostatic hyperplasia without lower urinary tract symptoms; M10.9 Gout, unspecified; Z79.899 Other long term (current) drug therapy; R19.7 Diarrhea, unspecified; Z88.2 Allergy status to sulfonamides; L27.0 Generalized skin eruption due to drugs and medicaments taken internally; T36.4X5A Adverse effect of tetracyclines, initial encounter

== ENCOUNTER → 2018-05-13 | Outpatient (REF) | payer OTHER ==
[~2018-05-13] MED LIST changes: +ACET1TAB55 PO; +ALEV220T26 PO; +AMLO5TAB6 PO; +CIPR500T3 PO; +XANA0.25 PO
[2018-05-13 11:48] LABS: APPEARANCE, URINE CLEAR (CLEAR); BACTERIA, URINE AUTO NEGATIVE (NEGATIVE); BILIRUBIN, URINE AUTO NEGATIVE (NEGATIVE); BLOOD, URINE BLOOD NEGATIVE (NEGATIVE); COLOR, URINE YELLOW (YELLOW); GLUCOSE, URINE (UA) AUTO NEGATIVE (NEGATIVE); KETONE, URINE AUTO NEGATIVE (NEGATIVE); LEUKOCYTE ESTERASE, URINE AUTO NEGATIVE (NEGATIVE); MUCUS, URINE SMALL (NEGATIVE); NITRITE, URINE AUTO NEGATIVE (NEGATIVE); PROTEIN, URINE AUTO NEGATIVE (NEGATIVE); RBC, URINE AUTO 1 /HPF (0-3); SPECIFIC GRAVITY URINE AUTO 1.015 (1.002-1.035); SQUAMOUS EPITHELIAL CELL UR AU 0 /HPF (0-6); WBC, URINE AUTO 3 /HPF (0-3)
== END ==
LOC: M SFHCCLAY 09:01
PROVIDERS: ATTEND Family Medicine
DX: R68.83 Chills (without fever) (principal); R35.0 Frequency of micturition

== ENCOUNTER → 2018-05-27 | Outpatient (REF) | payer OTHER ==
[2018-05-27 12:35] LABS: ALBUMIN 4.2 GM/DL (3.2-5.2); BILIRUBIN,DIRECT 0.2 MG/DL (0.0-0.2); BILIRUBIN,TOTAL 1.1 MG/DL (0.2-1.0); TOTAL PROTEIN 7.9 GM/DL (6.4-8.2)
== END ==
LOC: M SFHCCLAY 08:35
PROVIDERS: ATTEND Family Medicine
DX: R74.0 Nonspecific elevation of levels of transaminase and lactic acid dehydrogenase [LDH] (principal)

== ENCOUNTER → 2018-11-11 | Outpatient (REF) | payer OTHER ==
[2018-11-11 12:53] LABS: ALBUMIN 3.7 GM/DL (3.2-5.2); ALT/SGPT 74 U/L (12-78); BILIRUBIN,DIRECT 0.2 MG/DL (0.0-0.2); BILIRUBIN,TOTAL 0.7 MG/DL (0.2-1.0); BLOOD UREA NITROGEN 13 MG/DL (7-18); CALCIUM LEVEL 9.3 MG/DL (8.8-10.2); CARBON DIOXIDE LEVEL 29 MEQ/L (21-32); CHLORIDE LEVEL 103 MEQ/L (98-107); CREATININE FOR GFR 1.11 MG/DL (0.70-1.30); GLOMERULAR FILTRATION RATE > 60.0 (>49); GLUCOSE, FASTING 109 MG/DL (70-100); POTASSIUM SERUM 4.1 MEQ/L (3.5-5.1); SODIUM LEVEL 139 MEQ/L (136-145); TOTAL PROTEIN 7.3 GM/DL (6.4-8.2)
== END ==
LOC: M SFHCCLAY 08:09
PROVIDERS: ATTEND Family Medicine
DX: K76.0 Fatty (change of) liver, not elsewhere classified (principal); I11.9 Hypertensive heart disease without heart failure

== ENCOUNTER → 2018-12-01 | Outpatient (REF) | payer OTHER | LOC: M SFHCCLAY 12:05 | PROVIDERS: ATTEND Family Medicine | DX: M10.00 Idiopathic gout, unspecified site (principal) ==

== ENCOUNTER 2019-10-21 18:48 | Emergency (ER) | payer OTHER ==
[~2019-10-21] VITALS: Ht 182.9 cm; Wt 95.9 kg
[~2019-10-21 18:48] MED LIST changes: +AMLO1TAB24 PO; -AMLO5TAB6 PO
[2019-10-21] MEDS ORDERED: CHLO125TA PO (18:57)
[2019-10-21] MEDS ORDERED: RABIES IMMUNE GLOBULIN 1500 INTERNATIONAL UNIT/5ML VIAL (90375) IM ONE ×2 (20:00→20:15)
[2019-10-21] MEDS ORDERED: RABIES VACCINE HUMAN 2.5 INTERNATIONAL UNITS/ML VIAL (90675) IM ONE (20:00)
[2019-10-21] MEDS ORDERED: RABIES IMMUNE GLOBULIN 300 INTERNATIONAL UNITS/1ML VIAL (90375) IM ONE (20:15)
[2019-10-21 21:23] VITALS: BP 145/75
== END 2019-10-21 21:24 | disposition home or self-care (01) ==
LOC: M ED 18:48
DX: Z23 Encounter for immunization (principal); Z20.3 Contact with and (suspected) exposure to rabies; I10 Essential (primary) hypertension; Z88.2 Allergy status to sulfonamides; Z79.899 Other long term (current) drug therapy

== ENCOUNTER 2019-10-24 19:19 | Emergency (ER) | payer OTHER ==
[~2019-10-24] VITALS: Ht 182.9 cm; Wt 90.9 kg
[~2019-10-24 19:19] MED LIST changes: +CHLO125TA PO
[2019-10-24] MEDS ORDERED: RABIES VACCINE HUMAN 2.5 INTERNATIONAL UNITS/ML VIAL (90675) IM ONE (19:45)
[2019-10-24 20:15] VITALS: BP 178/92
== END 2019-10-24 20:17 | disposition home or self-care (01) ==
LOC: M ED 19:19
DX: Z23 Encounter for immunization (principal); Z20.3 Contact with and (suspected) exposure to rabies; I10 Essential (primary) hypertension; M10.9 Gout, unspecified; Z79.899 Other long term (current) drug therapy; Z88.1 Allergy status to other antibiotic agents

== ENCOUNTER 2019-10-28 15:13 | Emergency (ER) | payer OTHER ==
[~2019-10-28] VITALS: Ht 182.9 cm; Wt 95.9 kg
[2019-10-28 15:15] VITALS: BP 167/92
[2019-10-28] MEDS ORDERED: RABIES VACCINE HUMAN 2.5 INTERNATIONAL UNITS/ML VIAL (90675) IM ONE (15:30)
== END 2019-10-28 15:47 | disposition home or self-care (01) ==
LOC: M ED 15:13
DX: Z23 Encounter for immunization (principal); Z20.3 Contact with and (suspected) exposure to rabies; I10 Essential (primary) hypertension; Z88.1 Allergy status to other antibiotic agents

== ENCOUNTER 2019-11-04 18:21 | Emergency (ER) | payer OTHER ==
[~2019-11-04] VITALS: Ht 182.9 cm; Wt 95.7 kg
[2019-11-04] MEDS ORDERED: RABIES VACCINE HUMAN 2.5 INTERNATIONAL UNITS/ML VIAL (90675) IM ONE (19:45)
[2019-11-04 20:15] VITALS: BP 181/94
== END 2019-11-04 20:31 | disposition home or self-care (01) ==
LOC: M ED 18:21
DX: Z23 Encounter for immunization (principal); Z20.3 Contact with and (suspected) exposure to rabies; I10 Essential (primary) hypertension; Z88.1 Allergy status to other antibiotic agents

== ENCOUNTER → 2019-11-24 | Outpatient (CLI) | payer OTHER ==
--- NOTE | 2019-12-03 09:01 | REP ---
RIGHT UPPER QUADRANT ULTRASOUND HISTORY: Elevated liver function tests. TECHNIQUE: Real-time sonographic evaluation of the right upper quadrant is performed. FINDINGS: Gallbladder demonstrates no evidence of intraluminal sludge or calculi, wall thickening, or pericholecystic fluid. There is no intrahepatic or extrahepatic biliary dilatation. Common bile duct measuring 4 mm. Liver demonstrates diffuse heterogeneous increased echotexture compatible with diffuse fibrofatty infiltration. There is a 6-mm shadowing calcification in the right lobe of the liver with no gross mass. Pancreas demonstrates no gross mass, evaluation is limited due to overlying bowel gas. Right kidney demonstrates no hydronephrosis with normal size 11.4 cm in length. IMPRESSION: Diffuse fibrofatty infiltration of the liver. Calcified granuloma right lobe. No gross mass. No other significant finding. MTDD
== END ==
LOC: M RAD 09:20
PROVIDERS: ATTEND Nurse Practitioner Family
DX: R94.5 Abnormal results of liver function studies (principal); K76.0 Fatty (change of) liver, not elsewhere classified; K76.89 Other specified diseases of liver

== ENCOUNTER → 2020-01-07 | Outpatient (CLI) | payer SELFPAY | LOC: M LABSMTC 10:39 | PROVIDERS: ATTEND Pediatrics | DX: Z20.828 Contact with and (suspected) exposure to other viral communicable diseases (principal) ==

== ENCOUNTER → 2020-03-14 | Outpatient (CLI) | payer SELFPAY ==
[~2020-03-14] MED LIST changes: +COLC0.6T47 PO; -COLC1TAB13 PO
== END ==
LOC: M LABSMTC 12:40
PROVIDERS: ATTEND Pediatrics
DX: Z20.822 Contact with and (suspected) exposure to COVID-19 (principal)

== ENCOUNTER → 2020-03-18 | Outpatient (REF) | payer MEDICARE, MEDICAID ==
[2020-03-18 11:31] LABS: ALT/SGPT 61 U/L (12-78); BLOOD UREA NITROGEN 13 MG/DL (7-18); CALCIUM LEVEL 9.4 MG/DL (8.8-10.2); CARBON DIOXIDE LEVEL 27 MEQ/L (21-32); CHLORIDE LEVEL 103 MEQ/L (98-107); CHOLESTEROL LEVEL 226 MG/DL (<200); CREATININE FOR GFR 1.01 MG/DL (0.70-1.30); GLOMERULAR FILTRATION RATE > 60.0 (>49); GLUCOSE, FASTING 94 MG/DL (70-100); HDL CHOLESTEROL 40 MG/DL (>40); LDL CHOLESTEROL 141 MG/DL (<100); NON-HDL-C 186 MG/DL; POTASSIUM SERUM 3.9 MEQ/L (3.5-5.1); SODIUM LEVEL 142 MEQ/L (136-145); TOTAL PROTEIN 7.7 GM/DL (6.4-8.2); TRIGLYCERIDES LEVEL 226 MG/DL (<150); URIC ACID 8.5 MG/DL (3.5-7.2)
[2020-03-18 12:33] LABS: HEMOGLOBIN A1c 5.1 %
== END ==
LOC: M SFHCCLAY 08:16
PROVIDERS: ATTEND Family Medicine
DX: I11.9 Hypertensive heart disease without heart failure (principal); K76.0 Fatty (change of) liver, not elsewhere classified; E78.5 Hyperlipidemia, unspecified; Z83.3 Family history of diabetes mellitus; Z12.5 Encounter for screening for malignant neoplasm of prostate; N40.2 Nodular prostate without lower urinary tract symptoms; M1A.9XX0 Chronic gout, unspecified, without tophus (tophi)
CPT/HCPCS: 80053; 80061; 83036; 84550; G0103

== ENCOUNTER → 2020-05-09 | Outpatient (CLI) | payer MEDICARE, MEDICAID, OTHER | LOC: M PLALAB 09:36 | PROVIDERS: ATTEND Nurse Practitioner Family | DX: N39.0 Urinary tract infection, site not specified (principal); R97.20 Elevated prostate specific antigen [PSA] | CPT/HCPCS: 36415; 87086; G0463 ==

== ENCOUNTER → 2020-05-23 | Outpatient (CLI) | payer SELFPAY | LOC: M LABSMTC 10:53 | PROVIDERS: ATTEND Pediatrics | DX: Z20.822 Contact with and (suspected) exposure to COVID-19 (principal) ==

== ENCOUNTER → 2020-06-14 | Outpatient (CLI) | payer MEDICARE, MEDICAID, OTHER ==
--- NOTE | 2020-06-14 13:11 | REPPI ---
INDICATION: ELEVATED PSA. COMPARISON: Comparison study April 27, 2018.. TECHNIQUE: Transrectal prostate sonography. FINDINGS: Trans rectal prostate sonography demonstrates unremarkable seminal vesicles. Prostate gland is heterogeneous, with calcifications and cystic changes noted. Glandular dimensions are measured at 3.7 x 5.3 x 4.1 cm with a calculated glandular volume of 42.3 ml. Transrectal sonographic guidance is provided to Dr. Sotelo who performed trans rectal ultrasound guided needle biopsy procedure. IMPRESSION: Transrectal prostate sonographic findings as above. <Electronically signed by Manas Honeycutt > 06/14/20 [id number]
== END ==
LOC: M SMT PRO 10:45
PROVIDERS: ATTEND Urology
DX: R97.20 Elevated prostate specific antigen [PSA] (principal)
CPT/HCPCS: 55700; 76872; 76942; G0416

== ENCOUNTER → 2020-06-20 | Outpatient (REF) | payer MEDICARE, MEDICAID, OTHER ==
[2020-06-20 12:31] LABS: BLOOD UREA NITROGEN 12 MG/DL (7-18); CALCIUM LEVEL 9.3 MG/DL (8.8-10.2); CARBON DIOXIDE LEVEL 27 MEQ/L (21-32); CHLORIDE LEVEL 105 MEQ/L (98-107); CREATININE FOR GFR 0.87 MG/DL (0.70-1.30); GLOMERULAR FILTRATION RATE > 60.0 (>49); GLUCOSE, FASTING 106 MG/DL (70-100); POTASSIUM SERUM 4.2 MEQ/L (3.5-5.1); SODIUM LEVEL 140 MEQ/L (136-145); URIC ACID 3.8 MG/DL (3.5-7.2)
== END ==
LOC: M LABDRAWC 11:09
PROVIDERS: ATTEND Internal Medicine Cardiovascular Disease
DX: I10 Essential (primary) hypertension (principal); M1A.9XX1 Chronic gout, unspecified, with tophus (tophi)

== ENCOUNTER → 2020-08-09 | Outpatient (REF) | payer MEDICARE, OTHER ==
[2020-08-10 11:52] LABS: BASO # 0.1 10^3/uL (0.0-0.2); EOS % 0.3 % (0.0-3.0); HEMATOCRIT 44.7 % (42.0-52.0); LYMPH # 1.2 10^3/uL (1.5-5.0); LYMPH % 20.5 % (24.0-44.0); MEAN CORPUSCULAR HGB CONC 33.6 g/dl (32.0-36.5); MEAN CORPUSCULAR VOLUME 101.4 fl (80.0-96.0); MONO # 0.9 10^3/uL (0.0-0.8); MONO % 15.6 % (2.0-8.0); NEUTROPHILS # 3.7 10^3/uL (1.5-8.5); NEUTROPHILS % 61.8 % (36.0-66.0); PLATELET COUNT, AUTOMATED 156 10^3/uL (150-450); RED BLOOD COUNT 4.41 10^6/uL (4.30-6.10)
[2020-08-10 12:22] LABS: ALT/SGPT 133 U/L (12-78); BILIRUBIN,TOTAL 1.3 MG/DL (0.2-1.0); BLOOD UREA NITROGEN 10 MG/DL (7-18); CALCIUM LEVEL 9.2 MG/DL (8.8-10.2); CARBON DIOXIDE LEVEL 25 MEQ/L (21-32); CHLORIDE LEVEL 102 MEQ/L (98-107); CREATININE FOR GFR 0.83 MG/DL (0.70-1.30); GLOMERULAR FILTRATION RATE > 60.0 (>49); GLUCOSE, FASTING 80 MG/DL (70-100); POTASSIUM SERUM 4.8 MEQ/L (3.5-5.1); SODIUM LEVEL 134 MEQ/L (136-145); TOTAL PROTEIN 7.9 GM/DL (6.4-8.2)
== END ==
LOC: M SFHCCLAY 15:30
PROVIDERS: ATTEND Physician Assistant
DX: R19.7 Diarrhea, unspecified (principal); K76.0 Fatty (change of) liver, not elsewhere classified

== ENCOUNTER → 2020-08-10 | Outpatient (REF) | payer MEDICARE, OTHER | LOC: M SFHCCLAY 15:40 | PROVIDERS: ATTEND Physician Assistant | DX: R19.7 Diarrhea, unspecified (principal) ==

== ENCOUNTER → 2020-12-05 | Outpatient (CLI) | payer MEDICARE, OTHER ==
--- NOTE | 2020-12-05 10:29 | REP ---
INDICATION: ELEVATED LFT'S COMPARISON: 11/24/2019 TECHNIQUE: Real time gilmore scale ultrasound examination using curved array transducer. FINDINGS: Liver demonstrates diffuse fatty infiltration without focal hepatic lesion. Small calcification in the right lobe is again identified. Pancreas is incompletely evaluated due to interposed bowel gas. The gallbladder is normal and without gallstones, wall thickening, or pericholecystic fluid. No biliary ductal dilatation is appreciated and the common bile duct measures 6.3 mm diameter. Right kidney is normal in reniform shape without hydronephrosis and measures 11.1 x 2.5 x 5.2 cm. No ascites in the visualized right upper quadrant. IMPRESSION: Hepatosteatosis. <Electronically signed by Ye Pitts > 12/05/20 [id number]
== END ==
LOC: M RAD 09:46
PROVIDERS: ATTEND Nurse Practitioner Family
DX: R94.5 Abnormal results of liver function studies (principal); R19.7 Diarrhea, unspecified; Z12.11 Encounter for screening for malignant neoplasm of colon

== ENCOUNTER → 2021-01-06 | Outpatient (REF) | payer OTHER ==
[2021-01-06 12:17] LABS: CHOLESTEROL RISK RATIO 6.394 (<5)
== END ==
LOC: M LABDRAWC 11:02
PROVIDERS: ATTEND Internal Medicine Cardiovascular Disease
DX: E78.2 Mixed hyperlipidemia (principal)

== ENCOUNTER → 2021-01-27 | Outpatient (REF) | payer MEDICARE, OTHER | LOC: M SFHCCLAY 12:44 | PROVIDERS: ATTEND Family Medicine | DX: M1A.9XX0 Chronic gout, unspecified, without tophus (tophi) (principal) ==

== ENCOUNTER 2021-07-17 14:48 | Emergency (ER) | payer MEDICARE, OTHER ==
[~2021-07-17] VITALS: Ht 180.3 cm; Wt 94.4 kg
[2021-07-17] MEDS ORDERED: ATOR1TAB21 (14:58)
[2021-07-17] MEDS ORDERED: CLON-412 (14:58)
[2021-07-17] MEDS ORDERED: ALLO300T2 (14:58)
[2021-07-17] MEDS ORDERED: LISI10TA22 (14:58)
[2021-07-17] MEDS ORDERED: MULTIVITAMIN -ADULT INJECTION 10 ML, THIAMINE INJection 100 MG, FOLIC ACID 1 MG in NS 1... IV ONE (17:00)
[2021-07-17] MEDS ORDERED: cloNIDine 0.1MG TABLET PO ONE (17:10)
[2021-07-17] MEDS ORDERED: LORazepam 2 MG TAB PO STA (17:44)
[2021-07-17 18:08] LABS: BASO % 0.4 % (0.0-1.0); EOS % 0.1 % (0.0-3.0); HEMATOCRIT 45.8 % (42.0-52.0); LYMPH # 1.7 10^3/uL (1.5-5.0); LYMPH % 21.6 % (24.0-44.0); MEAN CORPUSCULAR HGB CONC 34.9 g/dl (32.0-36.5); MEAN CORPUSCULAR VOLUME 97.4 fl (80.0-96.0); MONO # 0.7 10^3/uL (0.0-0.8); MONO % 8.9 % (2.0-8.0); NEUTROPHILS # 5.5 10^3/uL (1.5-8.5); NEUTROPHILS % 68.6 % (36.0-66.0); PLATELET COUNT, AUTOMATED 176 10^3/uL (150-450)
[2021-07-17 18:18] LABS: PARTIAL THROMBOPLASTIN TIME 29.6 SECONDS (25.9-37.0); PROTHROMBIN TIME 13.6 SECONDS (12.7-14.5)
[2021-07-17 18:22] LABS: ALBUMIN 3.9 GM/DL (3.2-5.2); ALT/SGPT 47 U/L (12-78); BILIRUBIN,DIRECT 0.4 MG/DL (0.0-0.2); BILIRUBIN,TOTAL 1.8 MG/DL (0.2-1.0); BLOOD UREA NITROGEN 5 MG/DL (7-18); CALCIUM LEVEL 9.1 MG/DL (8.8-10.2); CARBON DIOXIDE LEVEL 27 MEQ/L (21-32); CHLORIDE LEVEL 104 MEQ/L (98-107); CREATININE FOR GFR 0.86 MG/DL (0.70-1.30); GLOMERULAR FILTRATION RATE > 60.0 (>49); GLUCOSE, FASTING 88 MG/DL (70-100); LIPASE 166 U/L (73-393); POTASSIUM SERUM 3.8 MEQ/L (3.5-5.1); SODIUM LEVEL 139 MEQ/L (136-145); TOTAL PROTEIN 8.1 GM/DL (6.4-8.2)
[2021-07-17 18:31] LABS: RSV AMPLIFICATION NEGATIVE (NEGATIVE)
[2021-07-17 20:01] LABS: AMPHETAMINES LEVEL URINE NEGATIVE (NEGATIVE); BARBITURATES URINE NEGATIVE (NEGATIVE); BENZODIAZEPINES URINE NEGATIVE (NEGATIVE); CANNABINOIDS URINE NEGATIVE (NEGATIVE); COCAINE METABOLITE URINE NEGATIVE (NEGATIVE); METHADONE URINE NEGATIVE (NEGATIVE); OPIATES URINE NEGATIVE (NEGATIVE); PHENCYCLIDINE URINE NEGATIVE (NEGATIVE)
[2021-07-17 20:04] LABS: CK-MB VALUE MASS < 1.0 NG/ML (<3.6); CPK CREATINE PHOSPHOKINASE 113 U/L (39-308); MB/CK RELATIVE INDEX 0.88 (< OR =4)
[2021-07-17] MEDS ORDERED: LORazepam 2 MG/ML VIAL IV STA (21:06)
[2021-07-17 22:58] VITALS: BP 149/90
== END 2021-07-17 23:07 | disposition short-term general hospital (02) ==
LOC: M ED 14:48
DX: F10.239 Alcohol dependence with withdrawal, unspecified (principal); I10 Essential (primary) hypertension; E78.5 Hyperlipidemia, unspecified; K76.0 Fatty (change of) liver, not elsewhere classified; F17.200 Nicotine dependence, unspecified, uncomplicated; Z88.2 Allergy status to sulfonamides; Z79.811 Long term (current) use of aromatase inhibitors; Z79.899 Other long term (current) drug therapy
CPT/HCPCS: 71046; 80053; 80307; 82077; 82248; 82550; 82553; 83690; 84425; 84484; 85025; 85610; 85730; 87631; 93005; 93041; 94760; 96365; 96366; 96375; 99285; J2060; J3411

== ENCOUNTER → 2021-07-26 | Outpatient (CLI) | payer OTHER ==
[~2021-07-26] MED LIST changes: +ALLO300T2; +ATOR1TAB21; +CLON-412; +LISI10TA22
== END ==
LOC: M OUTALCOH 07:50
PROVIDERS: ATTEND Psychiatry & Neurology Psychiatry
DX: Z13.30 Encounter for screening examination for mental health and behavioral disorders, unspecified (principal)

== ENCOUNTER 2021-08-23 08:40 | Outpatient (RCR) | payer OTHER | END 2021-08-24 | LOC: M OUTALCOH 08:40 | PROVIDERS: ATTEND Psychiatry & Neurology Psychiatry | DX: F10.20 Alcohol dependence, uncomplicated (principal) ==

== ENCOUNTER 2021-09-20 08:00 | Outpatient (RCR) | payer OTHER | END 2021-09-24 | LOC: M OUTALCOH 08:00 | PROVIDERS: ATTEND Psychiatry & Neurology Psychiatry | DX: F10.20 Alcohol dependence, uncomplicated (principal) ==

== ENCOUNTER → 2022-05-28 | Outpatient (REF) | payer BC, MEDICAID | LOC: M SFHCCLAY 10:54 | PROVIDERS: ATTEND Nurse Practitioner Family | DX: J06.9 Acute upper respiratory infection, unspecified (principal) ==

== ENCOUNTER → 2022-05-28 | Outpatient (CLI) | payer BC, MEDICAID | LOC: M CLY 11:02 | PROVIDERS: ATTEND Nurse Practitioner Family | DX: J06.9 Acute upper respiratory infection, unspecified (principal) ==

== ENCOUNTER → 2022-08-15 | Outpatient (REF) | payer BC, MEDICAID ==
[2022-08-15 12:35] LABS: URIC ACID 4.9 MG/DL (3.7-9.2)
[2022-08-15 12:36] LABS: C REACTIVE PROTEIN QUANTITATIV < 0.40 MG/DL (<1.0)
[2022-08-15 12:38] LABS: RHEUMATOID FACTOR QUANT < 3.5 IU/ML (<14)
[2022-08-15 12:39] LABS: ALKALINE PHOSPHATASE 63 U/L (46-116); ALT/SGPT < 9 U/L (7.0-40); AST/SGOT 18 U/L (<34); BILIRUBIN,TOTAL 1.3 MG/DL (0.3-1.2); BLOOD UREA NITROGEN 14 MG/DL (9-23); CARBON DIOXIDE LEVEL 29 MMOL/L (20-31); CHLORIDE LEVEL 104 MMOL/L (98-107); CHOLESTEROL LEVEL 178 MG/DL (<200); CHOLESTEROL RISK RATIO 6.42 (<5); CREATININE FOR GFR 0.91 MG/DL (0.70-1.30); GLOMERULAR FILTRATION RATE > 60.0 (>49); GLUCOSE, FASTING 124 MG/DL (74-106); HDL CHOLESTEROL 27.7 MG/DL (>40); LDL CHOLESTEROL 127.1 MG/DL (<100); NON-HDL-C 150.3 MG/DL; POTASSIUM SERUM 4.3 MMOL/L (3.5-5.1); SODIUM LEVEL 139 MMOL/L (136-145); TOTAL PROTEIN 6.7 G/DL (5.7-8.2); TRIGLYCERIDES LEVEL 116 MG/DL (<150)
[2022-08-15 13:14] LABS: HEMOGLOBIN A1c 5.4 % (4.0-6.0)
[2022-08-16 21:08] LABS: CYCLIC CITRULLINATED PEPTIDE 5 units (0-19)
== END ==
LOC: M SFHCCLAY 07:40
PROVIDERS: ATTEND Nurse Practitioner Family
DX: M1A.9XX0 Chronic gout, unspecified, without tophus (tophi) (principal); R97.20 Elevated prostate specific antigen [PSA]; K76.0 Fatty (change of) liver, not elsewhere classified; E78.5 Hyperlipidemia, unspecified; Z83.3 Family history of diabetes mellitus
CPT/HCPCS: 80053; 80061; 83036; 84550; 85652; 86038; 86140; 86200; 86431; G0103

== ENCOUNTER → 2023-06-18 | Outpatient (REF) | payer OTHER ==
[2023-06-18 11:14] LABS: BASO # 0.1 10^3/uL (0.0-0.2); BASO % 0.9 % (0.0-1.0); EOS # 0.2 10^3/uL (0.0-0.5); EOS % 2.8 % (0.0-3.0); HEMATOCRIT 43.3 % (42.0-52.0); HEMOGLOBIN 14.7 g/dl (13.5-17.5); LYMPH # 2.1 10^3/uL (1.5-5.0); LYMPH % 39.9 % (24.0-44.0); MEAN CORPUSCULAR HEMOGLOBIN 32.5 pg (27.0-33.0); MEAN CORPUSCULAR HGB CONC 33.9 g/dl (32.0-36.5); MEAN CORPUSCULAR VOLUME 95.6 fl (80.0-96.0); MONO # 0.6 10^3/uL (0.0-0.8); MONO % 10.8 % (2.0-8.0); NEUTROPHILS # 2.4 10^3/uL (1.5-8.5); NEUTROPHILS % 45.4 % (36.0-66.0); PLATELET COUNT, AUTOMATED 177 10^3/uL (150-450); RED BLOOD COUNT 4.53 10^6/uL (4.30-6.10); WHITE BLOOD COUNT 5.3 10^3/uL (4.0-10.0)
[2023-06-18 11:24] LABS: ERYTHROCYTE SEDIMENTATION RATE 9 mm/hr (0-20)
[2023-06-18 11:39] LABS: HEMOGLOBIN A1c 5.3 % (4.0-6.0)
[2023-06-18 12:01] LABS: URIC ACID 4.7 MG/DL (3.7-9.2)
[2023-06-18 12:04] LABS: CHOLESTEROL RISK RATIO 7.16 (<5); HDL CHOLESTEROL 29.3 MG/DL (>40); LDL CHOLESTEROL 157.3 MG/DL (<100); NON-HDL-C 180.7 MG/DL; PROSTATIC SPECIFIC AG MONITOR 3.7 NG/ML (< 4.00)
[2023-06-18 12:17] LABS: C REACTIVE PROTEIN QUANTITATIV < 0.40 MG/DL (<1.0)
[2023-06-18 12:35] LABS: ALBUMIN 4.2 G/DL (3.2-5.2); ALKALINE PHOSPHATASE 62 U/L (46-116); ALT/SGPT 33 U/L (7.0-40); AST/SGOT 39 U/L (<34); BILIRUBIN,TOTAL 1.1 MG/DL (0.3-1.2); BLOOD UREA NITROGEN 22 MG/DL (9-23); CALCIUM LEVEL 9.5 MG/DL (8.3-10.6); CARBON DIOXIDE LEVEL 27 MMOL/L (20-31); CHLORIDE LEVEL 105 MMOL/L (98-107); CREATININE FOR GFR 0.84 MG/DL (0.70-1.30); GLOMERULAR FILTRATION RATE > 60.0 (>49); GLUCOSE, FASTING 106 MG/DL (74-106); POTASSIUM SERUM 4.2 MMOL/L (3.5-5.1); SODIUM LEVEL 138 MMOL/L (136-145); TOTAL PROTEIN 6.8 G/DL (5.7-8.2)
== END ==
LOC: M SFHCCLAY 07:06
PROVIDERS: ATTEND Nurse Practitioner Family
DX: M1A.9XX0 Chronic gout, unspecified, without tophus (tophi) (principal); M1A.09X1 Idiopathic chronic gout, multiple sites, with tophus (tophi); E78.5 Hyperlipidemia, unspecified; I11.9 Hypertensive heart disease without heart failure; R97.20 Elevated prostate specific antigen [PSA]; Z83.3 Family history of diabetes mellitus; Z79.899 Other long term (current) drug therapy

== ENCOUNTER → 2023-10-11 | Outpatient (REF) | payer OTHER | LOC: M SFHCDERM 10:46 | PROVIDERS: ATTEND Nurse Practitioner Family | DX: B07.9 Viral wart, unspecified (principal) ==

== ENCOUNTER → 2024-01-29 | Outpatient (REF) | payer OTHER ==
[2024-01-29 17:21] LABS: BASO % 0.6 % (0.0-1.0); EOS # 0.1 10^3/uL (0.0-0.5); EOS % 2.2 % (0.0-3.0); HEMATOCRIT 45.7 % (42.0-52.0); HEMOGLOBIN 15.1 g/dl (13.5-17.5); LYMPH # 2.2 10^3/uL (1.5-5.0); LYMPH % 34.9 % (24.0-44.0); MEAN CORPUSCULAR HEMOGLOBIN 31.4 pg (27.0-33.0); MONO # 0.6 10^3/uL (0.0-0.8); MONO % 9.1 % (2.0-8.0); NEUTROPHILS # 3.3 10^3/uL (1.5-8.5); NEUTROPHILS % 52.6 % (36.0-66.0); PLATELET COUNT, AUTOMATED 179 10^3/uL (150-450); RED BLOOD COUNT 4.81 10^6/uL (4.30-6.10); WHITE BLOOD COUNT 6.3 10^3/uL (4.0-10.0)
[2024-01-29 17:39] LABS: URIC ACID 5.8 MG/DL (3.7-9.2)
[2024-01-29 17:41] LABS: ERYTHROCYTE SEDIMENTATION RATE 11 mm/hr (0-20)
[2024-01-29 17:42] LABS: ALBUMIN 4.5 G/DL (3.2-5.2); ALKALINE PHOSPHATASE 73 U/L (40-129); ALT/SGPT 30 U/L (7.0-40); AST/SGOT 16 U/L (<34); BILIRUBIN,TOTAL 1.2 MG/DL (0.3-1.2); BLOOD UREA NITROGEN 20 MG/DL (9-23); C REACTIVE PROTEIN QUANTITATIV < 0.50 MG/DL (<1.0); CARBON DIOXIDE LEVEL 29 MMOL/L (20-31); CHLORIDE LEVEL 104 MMOL/L (98-107); CREATININE FOR GFR 0.93 MG/DL (0.70-1.30); GLOMERULAR FILTRATION RATE > 60.0 (>49); GLUCOSE, FASTING 86 MG/DL (74-106); POTASSIUM SERUM 4.2 MMOL/L (3.5-5.1); SODIUM LEVEL 140 MMOL/L (136-145); TOTAL PROTEIN 7.5 G/DL (5.7-8.2)
== END ==
LOC: M SFHCCLAY 14:46
PROVIDERS: ATTEND Internal Medicine Rheumatology
DX: M1A.09X1 Idiopathic chronic gout, multiple sites, with tophus (tophi) (principal); Z79.899 Other long term (current) drug therapy

== ENCOUNTER → 2024-02-04 | Outpatient (CLI) | payer MEDICARE, OTHER | LOC: M CLY 16:01 | PROVIDERS: ATTEND Physician Assistant | DX: M17.11 Unilateral primary osteoarthritis, right knee (principal) ==

== ENCOUNTER → 2024-11-23 | Outpatient (REF) | payer MEDICARE ==
[~2024-11-23] MED LIST changes: -COLC0.6T47 PO; +COLC0.6T53 PO; -FLOM0.4C39 PO; +TAMS-18 PO
[2024-11-23 19:08] LABS: ALT/SGPT 19.0 U/L (7.0-40); AST/SGOT 25.0 U/L (<34); CALCIUM LEVEL 8.7 MG/DL (8.3-10.6); CARBON DIOXIDE LEVEL 28.0 MMOL/L (20-31); CHLORIDE LEVEL 101.0 MMOL/L (98-107); CHOLESTEROL LEVEL 220.0 MG/DL (<200); CHOLESTEROL RISK RATIO 5.86 (<5); CREATININE FOR GFR 1.09 MG/DL (0.70-1.30); GLOMERULAR FILTRATION RATE 74.4 (>49); LDL CHOLESTEROL 145.5 MG/DL (<100); NON-HDL-C 182.5 MG/DL; POTASSIUM SERUM 4.8 MMOL/L (3.5-5.1); SODIUM LEVEL 140.0 MMOL/L (136-145); TRIGLYCERIDES LEVEL 185.0 MG/DL (<150)
[2024-11-23 19:25] LABS: ESTIMATED AVERAGE GLUCOSE 120.0 MG/DL (60-110)
== END ==
LOC: M SFHCCLAY 10:20
PROVIDERS: ATTEND Nurse Practitioner Family
DX: Z00.00 Encounter for general adult medical examination without abnormal findings (principal); M1A.9XX0 Chronic gout, unspecified, without tophus (tophi); E78.5 Hyperlipidemia, unspecified; I11.9 Hypertensive heart disease without heart failure; R97.20 Elevated prostate specific antigen [PSA]; Z83.3 Family history of diabetes mellitus

== ENCOUNTER → 2024-12-14 | Outpatient (REF) | payer MEDICARE | LOC: M SFHCCLAY 08:47 | PROVIDERS: ATTEND Nurse Practitioner Family | DX: Z53.9 Procedure and treatment not carried out, unspecified reason (principal) ==

== ENCOUNTER → 2025-02-11 | Outpatient (CLI) | payer MEDICARE ==
[~2025-02-11] MED LIST changes: +PROHANCE 279.3MG/ML 15ML VIAL As Ordered ONE; +PROHANCE 279.3MG/ML 5ML VIAL As Ordered ONE
== END ==
LOC: M RAD 07:31
PROVIDERS: ATTEND Urology
DX: R97.20 Elevated prostate specific antigen [PSA] (principal)
CPT/HCPCS: 72197; A9579